=== PATIENT | female | born 1965 | race African-American/Black ===

== ENCOUNTER 2023-09-17 11:08 | Inpatient (IN) | payer OTHER ==
[2023-09-17 12:00] LABS: Basophils % (A) 0 %; Eosinophils # (A) 0.3 k/uL (0-0.7); Eosinophils % (A) 3 %; HCT 36.5 % (34.0-46.0); HGB 12.1 gm/dL (11.4-16.0); Lymphocytes # (A) 2.1 k/uL (1.0-4.8); Lymphocytes % (A) 20 %; MCH 30.8 pg (25.0-35.0); MCV 93.5 fL (80.0-100.0); Mean Platelet Volume 7.6; Monocytes # (A) 0.4 k/uL (0-1.0); Monocytes % (A) 4 %; Neutrophils # (A) 7.5 k/uL (1.3-7.7); Neutrophils % (A) 72 %; Platelet Count 278 k/uL (150-450); RBC 3.91 m/uL (3.80-5.40); WBC 10.5 k/uL (3.8-10.6)
[2023-09-17 12:07] LABS: INR 0.9 (<1.2); Partial Thromboplastin Time 24.2 sec (22.0-30.0); Prothrombin Time 9.9 sec (10.0-12.5)
[2023-09-17 12:16] LABS: ALT 16 U/L (4-34); AST 19 U/L (14-36); African American GFR (CKD) >90 (>60 ml/min/1.73 sqM); Albumin 3.9 g/dL (3.5-5.0); Alkaline Phosphatase 86 U/L (38-126); Anion Gap 9 mmol/L; Blood Urea Nitrogen 13 mg/dL (7-17); Calcium 9.2 mg/dL (8.4-10.2); Carbon Dioxide 24 mmol/L (22-30); Chloride 107 mmol/L (98-107); Creatine Kinase 65 U/L (30-135); Glucose 90 mg/dL (74-99); Non-African American GFR(CKD) >90 (>60 ml/min/1.73 sqM); Potassium 4.1 mmol/L (3.5-5.1); Sodium 140 mmol/L (137-145); Total Bilirubin 0.4 mg/dL (0.2-1.3); Total Protein 7.3 g/dL (6.3-8.2)
--- NOTE | 2023-09-17 12:49 | CT ---
EXAMINATION TYPE: CT brain wo con CT DLP: 1164 mGycm, Automated exposure control for dose reduction was used. DATE OF EXAM: 09/17/2023 12:29 PM COMPARISON: None. CLINICAL INDICATION:Female, 58 years old with history of Neuro deficit, acute, stroke suspected, Neur o deficit, acute stroke suspected. TECHNIQUE: Brain: Axial CT images of the brain were obtained with coronal and sagittal reformats created and rev iewed. Contrast used: None. Oral contrast used: None. FINDINGS: Brain: Extra-axial spaces: No abnormal extra-axial fluid collections. Ventricular system: Within normal limits Cerebral parenchyma: No acute intraparenchymal hemorrhage or mass effect. The kiser-white junction is well differentiated. Scattered hypoattenuating areas are seen within the white matter. Cerebellum: Unremarkable. Mass effect: No evidence of midline shift. Intracranial vasculature: unremarkable Soft tissues: Normal. Calvarium/osseous structures: No depressed skull fracture. Paranasal sinuses and mastoid air cells: Mild scattered paranasal sinus disease. Visualized orbits: Orbital contents are intact. The globes protrude from the orbits bilaterally.. IMPRESSION: 1. No acute intracranial process. 2. Nonspecific white matter changes, likely secondary to chronic small vessel ischemic disease. 3. Bilateral exophthalmos.
--- NOTE | 2023-09-17 12:53 | CT ---
EXAMINATION TYPE: CT angio head neck CT DLP: 662 mGycm, Automated exposure control for dose reduction was used. DATE OF EXAM: 09/17/2023 12:31 PM COMPARISON: CT head same day. CLINICAL INDICATION:Female, 58 years old with history of Neuro deficit, acute, stroke suspected; PHH, Neuro deficit, acute stroke suspected. TECHNIQUE: Axially acquired helical CT angiogram of the head and neck was obtained with contrast. Axi al images are supplemented with 3D reconstructions and MIP images which were post-processed at an in dependent workstation. NASCET criteria used. Contrast used:65 ml mL of Isovue 300 without and with IV Contrast, Oral contrast used: None. FINDINGS: CTA HEAD: No evidence of acute intracranial hemorrhage, mass effect, or midline shift. The ventricles, sulci, a nd cisterns are unremarkable. The visualized portions of the internal carotid arteries, middle cerebral arteries, anterior cerebral arteries, and posterior cerebral arteries are patent. Atherosclerosis of the carotid siphon. The basilar and vertebral arteries are patent. CTA NECK: Right Carotid System: The common carotid and external carotid arteries are patent. There is less than 50 % stenosis at the carotid bifurcation secondary to calcified/noncalcified plaque. The rest of the internal carotid millicent ry is patent. Left Carotid System: The common carotid and external carotid arteries are patent. There is less than 50 % stenosis at the carotid bifurcation secondary to calcified/noncalcified plaque. The rest of the internal carotid millicent ry is patent. Vertebral arteries are patent without evidence hemodynamically significant stenosis. There is a three-vessel aortic arch. The origins of the great vessels are patent. No evidence of hemo dynamically significant stenosis. The right subclavian artery courses posterior to the esophagus. Upper thorax: IMPRESSION: 1. No evidence of dissection of the cervical internal carotid arteries or vertebral arteries or any e vidence of significant stenosis at the carotid bifurcations. 2. No evidence of intracranial high-grade stenosis or intracranial aneurysm.
[2023-09-17] MEDS ORDERED: ASPIRIN 325 MG TAB PO STA (13:06)
--- NOTE | 2023-09-17 13:13 | ED ---
General Adult HPI - General Chief complaint: Neuro Symptoms/Deficit Stated complaint: Neuro symptoms Time Seen by Provider: 09/17/23 11:14 Source: patient, EMS, RN notes reviewed Mode of arrival: EMS Limitations: no limitations - History of Present Illness Initial comments: 58-year-old female presenting for evaluation of slurred speech, left-sided facia l droop, left arm numbness and weakness which began 2 days prior to arrival. Patient is currently at [facility] where she is undergoing substance abuse rehabilitation. She states that on September 15 she developed symptoms. They have not worsened or improved over the past 48 hours. She has no prior history of CVA that she reports. No headache. - Related Data Home Medications Medication Instructions Recorded Confirmed ARIPiprazole [Abilify] 15 mg PO HS 09/17/23 09/17/23 Acetaminophen Tab [Tylenol] 650 mg PO QID 09/17/23 09/17/23 Albuterol Nebulized [Ventolin 2.5 mg INHALATION RT-QID PRN 09/17/23 09/17/23 Nebulized] Albuterol Sulfate [Albuterol 2 puff PO RT-Q4H PRN 09/17/23 09/17/23 Sulfate Hfa] Artificial Tears-Hypromellose 1 drops BOTH EYES BID@0615,1630 09/17/23 09/17/23 [Artificial Tear Drops] Atorvastatin [Lipitor] 20 mg PO DAILY@0600 09/17/23 09/17/23 Benzonatate [Tessalon Perle] 200 mg PO TID PRN 09/17/23 09/17/23 Calcium/Magnesium/Zinc/Vitamin D 1 tab PO TID 09/17/23 09/17/23 Cetirizine HCl [Zyrtec] 10 mg PO DAILY@0600 09/17/23 09/17/23 Chlorpheniramine Maleate 4 mg PO Q4H PRN 09/17/23 09/17/23 [Chlor-Trimeton] Docusate [Colace] 100 mg PO BID PRN 09/17/23 09/17/23 Eucalyptus Oil/Menthol/Camphor 1 applic TOPICAL DIRECTED PRN 09/17/23 09/17/23 [Vicks Vaporub Ointment] Hydrocortisone Oint 1 applic TOPICAL BID@0600,1800 09/17/23 09/17/23 [Hydrocortisone 2.5% Oint] Ibuprofen [Motrin Ib] 600 mg PO Q6H PRN 09/17/23 09/17/23 Ketoconazole 2% Cream [Nizoral 2%] 1 applic TOPICAL DAILY@0609/17/23 09/17/23 Loperamide HCl [Imodium A-D] 4 mg PO QID PRN 09/17/23 09/17/23 Mag Hydrox/Aluminum Hyd/Simeth 30 ml PO Q4H PRN 09/17/23 09/17/23 [Mylanta Maximum Strength Liq] Magnesium Hydroxide [Milk of 2,400 mg PO BID PRN 09/17/23 09/17/23 Magnesia] Methyl Salicylate/Menthol [Icy Hot 1 applic TOPICAL BID PRN 09/17/23 09/17/23 10-30% Cream] Mometasone/Formoterol [Dulera 200 2 puff INHALATION BID@0600,1800 09/17/23 09/17/23 Mcg-5 Mcg Inhaler] Multivitamins, Thera [Multivitamin 1 tab PO DAILY 09/17/23 09/17/23 (formulary)] Prazosin [Minipress] 1 mg PO HS 09/17/23 09/17/23 QUEtiapine [SEROquel] 50 mg PO HS 09/17/23 09/17/23 Thiamine [Vitamin B-1] 100 mg PO DAILY 09/17/23 09/17/23 Triamcinolone 0.1% Cream [Kenalog 1 applicatio TOPICAL BID@0800,199909/17/23 09/17/23 0.1% Cream] amLODIPine [Norvasc] 10 mg PO DAILY@59909/17/23 09/17/23 atenoloL [Tenormin] 25 mg PO DAILY@59909/17/23 09/17/23 cloNIDine HCL [Catapres] 0.1 - 0.3 mg PO Q4H PRN 09/17/23 09/17/23 guaiFENesin SYRUP 100MG/5ML 200 mg PO Q4H PRN 09/17/23 09/17/23 [Robitussin] ondansetron HCL [Zofran] 8 mg PO Q6H PRN 09/17/23 09/17/23 Allergies Allergy/AdvReac Type Severity Reaction Status Date / Time benztropine [From Cogentin] Allergy Unknown Verified 09/17/23 12:04 venlafaxine [From Effexor] Allergy Anaphylaxis Verified 09/17/23 12:04 Review of Systems ROS Statement: Those systems with pertinent positive or pertinent negative responses have been documented in the HPI. ROS Other: All systems not noted in ROS Statement are negative. Past Medical History Past Medical History: Hyperlipidemia, Hypertension History of Any Multi-Drug Resistant Organisms: None Reported Past Psychological History: Bipolar, Schizoaffective Disorder Smoking Status: Current every day smoker Past Alcohol Use History: Abuse Past Drug Use History: Cocaine, Marijuana General Exam Limitations: no limitations General appearance: alert, in no apparent distress Head exam: Present: atraumatic, normocephalic ENT exam: Present: normal exam Neck exam: Present: normal inspection. Absent: tenderness, meningismus Respiratory exam: Present: normal lung sounds bilaterally. Absent: respiratory distress, wheezes Cardiovascular Exam: Present: regular rate, normal rhythm GI/Abdominal exam: Present: soft. Absent: distended, tenderness, guarding Neurological exam: Present: alert, motor sensory deficit (Left arm drift, mild dysarthria, NIH of 2) Psychiatric exam: Present: flat affect Skin exam: Present: warm, dry, intact Course Vital Signs 09/17/23 11:30 Temperature 98.1 F Pulse Rate 66 Respiratory 16 Rate Blood Pressure 138/88 O2 Sat by Pulse 96 Oximetry Medical Decision Making - Medical Decision Making Was pt. sent in by a medical professional or institution (, PA, HANDLE FINISHER, urgent care, hospital, or custodial...) When possible be specific @ -No Did you speak to anyone other than the patient for history (EMS, parent, family, police, friend...)? What history was obtained from this source @ -Yes, paramedics Did you review nursing and triage notes (agree or disagree)? Why? @ -I reviewed and agree with nursing and triage notes Were old charts reviewed (outside hosp., previous admission, EMS record, old EKG, old radiological studies, urgent care reports/EKG's, custodial records)? Report findings @ -No old charts were reviewed Differential Diagnosis (chest pain, altered mental status, abdominal pain women, abdominal pain men, vaginal bleeding, weakness, fever, dyspnea, syncope, headache, dizziness, GI bleed, back pain, seizure, CVA, palpatations, mental health, musculoskeletal)? @ -Differential CVA Ischemic stroke, hemorrhagic stroke, brain tumor, atypical migraine, Wernicke's encephalopathy, seizure, multiple sclerosis, meningitis, encephalitis, hypoglycemia, Guillain-Harris, electrolytes disturbance, myasthenia gravis.... This is not meant to be an all-inclusive list EKG interpreted by me (3pts min.). @ -Sinus rhythm rate of 66, AR interval 157, QRS duration 84, QTC [address] segment elevation X-rays interpreted by me (1pt min.). @ -None done CT interpreted by me (1pt min.). @ -[CT brain negative for intracranial hemorrhage or mass effect, CT angiography negative for acute occlusion or stenosis U/S interpreted by me (1pt. min.). @ -None done What testing was considered but not performed or refused? (CT, X-rays, U/S, labs)? Why? @ -None What meds were considered but not given or refused? Why? @ -None Did you discuss the management of the patient with other professionals (professionals i.e. , PA, HANDLE FINISHER, lab, RT, psych nurse, social media marketer, dairy clerk, teacher, mortgage loan officer originator, bilingual case manager)? Give summary @ -No Was smoking cessation discussed for >3mins.? @ -No Was critical care preformed (if so, how long)? @ -yes, 35 min Were there social determinants of health that impacted care today? How? (Homelessness, low income, unemployed, alcoholism, drug addiction, transportation, low edu. Level, literacy, decrease access to med. care, residential, rehab)? @ -No Was there de-escalation of care discussed even if they declined (Discuss DNR or withdrawal of care, Hospice)? DNR status @ -No What co-morbidities impacted this encounter? (DM, HTN, Smoking, COPD, CAD, Cancer, CVA, ARF, Chemo, Hep., AIDS, mental health diagnosis, sleep apnea, morbid obesity)? @ Substance abuse. Was patient admitted / discharged? Hospital course, mention meds given and route, prescriptions, significant lab abnormalities, going to OR and other pertinent info. @ 58-year-old female with 2 day history of slurred speech, left arm numbness and weakness and reported left facial droop. Initial NIH on my exam is 2 for left arm drift and mild dysarthria. She has stable vital signs. Laboratory testing unremarkable. CT is CT angiography are negative. patient is not a TPA candidate or candidate for intervention given the low NIH and the duration of symptoms. Undiagnosed new problem with uncertain prognosis? @ -No Drug Therapy requiring intensive monitoring for toxicity (Heparin, Nitro, Insulin, Cardizem)? @ -No Were any procedures done? @ -No Diagnosis/symptom? @ -[CVA Acute, or Chronic, or Acute on Chronic? @ Acute Uncomplicated (without systemic symptoms) or Complicated (systemic symptoms)? @ -default Side effects of treatment? @ -No Exacerbation, Progression, or Severe Exacerbation? @ -No Poses a threat to life or bodily function? How? (Chest pain, USA, AR, pneumonia, PE, COPD, DKA, ARF, appy, cholecystitis, CVA, Diverticulitis, Homicidal, Suicidal, threat to staff... and all critical care pts) @ -[Moderate risk, CVA - Lab Data Result diagrams: 09/17/23 11:41 09/17/23 11:41 Lab Results 09/17/23 09/17/23 09/17/23 Range/Units 11:41 11:41 11:41 WBC 10.5 (3.8-10.6) k/uL RBC 3.91 (3.80-5.40) m/uL Hgb 12.1 (11.4-16.0) gm/dL Hct 36.5 (34.0-46.0) % MCV 93.5 (80.0-100.0) fL MCH 30.8 (25.0-35.0) pg MCHC 33.0 (31.0-37.0) g/dL RDW 14.0 (11.5-15.5) % Plt Count 278 (150-450) k/uL MPV 7.6 Neutrophils % 72 % Lymphocytes % 20 % Monocytes % 4 % Eosinophils % 3 % Basophils % 0 % Neutrophils # 7.5 (1.3-7.7) k/uL Lymphocytes # 2.1 (1.0-4.8) k/uL Monocytes # 0.4 (0-1.0) k/uL Eosinophils # 0.3 (0-0.7) k/uL Basophils # 0.0 (0-0.2) k/uL PT 9.9 L (10.0-12.5) sec INR 0.9 (<1.2) APTT 24.2 (22.0-30.0) sec Sodium 140 (137-145) mmol/L Potassium 4.1 (3.5-5.1) mmol/L Chloride 107 (98-107) mmol/L Carbon Dioxide 24 (22-30) mmol/L Anion Gap 9 mmol/L BUN 13 (7-17) mg/dL Creatinine 0.64 (0.52-1.04) mg/dL Est GFR (CKD-EPI)AfAm >90 (>60 ml/min/1.73 sqM) Est GFR (CKD-EPI)NonAf >90 (>60 ml/min/1.73 sqM) Glucose 90 (74-99) mg/dL Calcium 9.2 (8.4-10.2) mg/dL Total Bilirubin 0.4 (0.2-1.3) mg/dL AST 19 (14-36) U/L ALT 16 (4-34) U/L Alkaline Phosphatase 86 (38-126) U/L Creatine Kinase 65 (30-135) U/L Troponin I (0.000-0.034) ng/mL Total Protein 7.3 (6.3-8.2) g/dL Albumin 3.9 (3.5-5.0) g/dL 09/17/23 Range/Units 11:41 WBC (3.8-10.6) k/uL RBC (3.80-5.40) m/uL Hgb (11.4-16.0) gm/dL Hct (34.0-46.0) % MCV (80.0-100.0) fL MCH (25.0-35.0) pg MCHC (31.0-37.0) g/dL RDW (11.5-15.5) % Plt Count (150-450) k/uL MPV Neutrophils % % Lymphocytes % % Monocytes % % Eosinophils % % Basophils % % Neutrophils # (1.3-7.7) k/uL Lymphocytes # (1.0-4.8) k/uL Monocytes # (0-1.0) k/uL Eosinophils # (0-0.7) k/uL Basophils # (0-0.2) k/uL PT (10.0-12.5) sec INR (<1.2) APTT (22.0-30.0) sec Sodium (137-145) mmol/L Potassium (3.5-5.1) mmol/L Chloride (98-107) mmol/L Carbon Dioxide (22-30) mmol/L Anion Gap mmol/L BUN (7-17) mg/dL Creatinine (0.52-1.04) mg/dL Est GFR (CKD-EPI)AfAm (>60 ml/min/1.73 sqM) Est GFR (CKD-EPI)NonAf (>60 ml/min/1.73 sqM) Glucose (74-99) mg/dL Calcium (8.4-10.2) mg/dL Total Bilirubin (0.2-1.3) mg/dL AST (14-36) U/L ALT (4-34) U/L Alkaline Phosphatase (38-126) U/L Creatine Kinase (30-135) U/L Troponin I <0.012 (0.000-0.034) ng/mL Total Protein (6.3-8.2) g/dL Albumin (3.5-5.0) g/dL Critical Care Time Critical Care Time: Yes Total Critical Care Time: 35 Disposition Clinical Impression: Cerebrovascular accident (CVA) Disposition: ADMITTED IP TO THIS HOSP Condition: Stable Is patient prescribed a controlled substance at d/c from ED?: No Time of Disposition: 13:13
[2023-09-17] MEDS: NICOTINE 21MG/24HR PATCH TRANSDERM SCH (15:31)
--- NOTE | 2023-09-17 18:58 | CA ---
Transthoracic Echo Report Name: Hailey Puckett Age: 58 Gender: F : 1965 Exam Date: 09/17/2023 16:33 Exam Location: [facility] Ht (in): Wt (lb): Ordering Physician: Vicente George MD Attending/Referring Phys: [employer] Accounts Supervisor Shu Gonzalez RDCS Procedure CPT: Indications: stroke Cardiac Hx: Technical Quality: Fair Contrast 1: Total Dose (mL): Contrast 2: Total Dose (mL): MEASUREMENTS (Male / Female) Normal Values 2D ECHO LV Diastolic Diameter PLAX 4.2 cm 4.2 - 5.9 / 3.9 - 5.3 cm LV Systolic Diameter PLAX 3.3 cm IVS Diastolic Thickness 1.2 cm 0.6 - 1.0 / 0.6 - 0.9 cm LVPW Diastolic Thickness 1.3 cm 0.6 - 1.0 / 0.6 - 0.9 cm LV Relative Wall Thickness 0.6 RV Internal Dim ED PLAX 3.7 cm LA Systolic Diameter LX 3.6 cm 3.0 - 4.0 / 2.7 - 3.8 cm LV Diastolic Volume MOD BP 68.7 cm??? 67 - 155 / 56 - 104 cm??? LV Systolic Volume MOD BP 36.5 cm??? 22 - 58 / 19 - 49 cm??? LV Ejection Fraction MOD BP 46.9 % >= 55 % LV Diastolic Volume MOD 4C 73.3 cm??? LV Systolic Volume MOD 4C 34.3 cm??? LV Ejection Fraction MOD 4C 53.2 % LV Diastolic Length 4C 8.0 cm LV Systolic Length 4C 6.8 cm LV Diastolic Volume MOD 2C 63.6 cm??? LV Systolic Volume MOD 2C 39.3 cm??? LV Ejection Fraction MOD 2C 38.1 % LV Diastolic Length 2C 7.8 cm LV Systolic Length 2C 6.8 cm LA Volume 55.0 cm??? 18 - 58 / 22 - 52 cm??? M-MODE Aortic Root Diameter MM 3.2 cm MV E Point Septal Separation 0.7 cm AV Cusp Separation MM 2.0 cm DOPPLER AV Peak Velocity 141.4 cm/s AV Peak Gradient 8.0 mmHg AI Peak Velocity 321.6 cm/s AI Peak Gradient 41.4 mmHg AI Pressure Half Time 611.2 ms MV Area PHT 2.8 cm??? Mitral E Point Velocity 137.6 cm/s Mitral A Point Velocity 109.0 cm/s Mitral E to A Ratio 1.3 MV Deceleration Time 266.9 ms MV E' Velocity 9.0 cm/s Mitral E to MV E' Ratio 15.3 TR Peak Velocity 271.4 cm/s TR Peak Gradient 29.5 mmHg Right Ventricular Systolic Press 34.5 mmHg FINDINGS Left Ventricle Left ventricular ejection fraction is estimated at 50-55 %. Left ventricular cavity size normal. Mildly increased septal wall thickness. Mildly increased posterior wall thickness. Mildly decreased left ventricular ejection fraction. Right Ventricle Mild right ventricular dilatation. Mild pulmonary hypertension. Right Atrium Normal right atrial size. Left Atrium Mildly increased left atrial volume. Mildly increased left atrial area. Mitral Valve Structurally normal mitral valve. Trace to mild mitral regurgitation. Aortic Valve Trileaflet aortic valve. Mild aortic regurgitation. Tricuspid Valve Structurally normal tricuspid valve. Mild tricuspid regurgitation. Pulmonic Valve Pulmonic valve not well visualized. Pericardium No pericardial effusion. Aorta Normal size aortic root and proximal ascending aorta. CONCLUSIONS Left ventricular ejection fraction is estimated at 50-55 %. Mild concentric illness No obvious regional wall motion abnormality Mild MR and mild AR RVSP estimated 35 mmHg No pericardial effusion Previewed by: Dr Juan Luis Flores (Electronically Signed) Final Date: 17 September 2023 18:58
[2023-09-17] MEDS ORDERED: METHYL SALICYLATE-MENTHOL OINT (3 OZ TUBE) TOPICAL PRN (20:48)
[2023-09-17] MEDS ORDERED: [UNRECOGNIZED DRUG - OTHER] TOPICAL PRN (20:48)
[2023-09-17] MEDS ORDERED: MENTHOL TOPICAL PRN (20:48)
[2023-09-17] MEDS ORDERED: EUCALYPTUS OIL TOPICAL PRN (20:48)
[2023-09-17] MEDS ORDERED: ALBUTEROL HFA INHALER INHALATION PRN (20:48)
[2023-09-17] MEDS ORDERED: MAG HYDROX/AL HYDROX/SIMETH 30 ML CUP PO PRN (20:48)
[2023-09-17] MEDS ORDERED: BENZONATATE 100 MG CAP PO PRN (20:48)
[2023-09-17] MEDS ORDERED: diphenhydrAMINE 25 MG CAP PO PRN (20:48)
[2023-09-17] MEDS ORDERED: MAGNESIUM HYDROXIDE 2,400 MG/30 ML CUP PO PRN (20:48)
[2023-09-17] MEDS ORDERED: guaiFENesin SYRUP 100MG/5ML 200 MG/10 ML CUP PO PRN (20:48)
[2023-09-17] MEDS ORDERED: LOPERAMIDE 2 MG CAP PO PRN (20:48)
[2023-09-17] MEDS ORDERED: CAMPHOR TOPICAL PRN (20:48)
[2023-09-17] MEDS ORDERED: DOCUSATE 100 MG CAP PO PRN (20:48)
[2023-09-17] MEDS ORDERED: NON FORMULARY DRUG (Calcium/Magnesium/Zinc/Vitamin D 1 TAB) PO SCH (22:00)
[2023-09-17] MEDS: ARIPiprazole 15 MG TAB PO SCH (23:33)
[2023-09-17] MEDS: ATORVASTATIN 40 MG TAB PO SCH (23:33)
[2023-09-17] MEDS: HEPARIN SODIUM,PORCINE 5,000 UNIT/ML 1 ML VIAL SQ SCH (23:33)
[2023-09-17] MEDS: PRAZOSIN 1 MG CAP PO SCH (23:33)
[2023-09-17] MEDS: QUEtiapine 50 MG TAB PO SCH (23:33)
[2023-09-17] MEDS: ACETAMINOPHEN TAB 325 MG TAB PO PRN (23:34)
[2023-09-18] MEDS: amLODIPine 10 MG TAB PO SCH (06:20)
[2023-09-18] MEDS: LORATADINE 10 MG TAB PO SCH (06:20)
[2023-09-18] MEDS: atenoloL 25 MG TAB PO SCH (06:20)
[2023-09-18] MEDS: ARTIFICIAL TEARS-HYPROMELLOSE DROPS 15 ML BTL BOTH EYES SCH ×2 (06:29→15:24)
[2023-09-18] MEDS: CLOTRIMAZOLE 1% CREAM 30 GM TUBE TOPICAL SCH ×2 (06:29→06:37)
[2023-09-18] MEDS: HYDROCORTISONE 1% OINT 28.35 GM TUBE TOPICAL SCH ×2 (06:39→18:42)
[2023-09-18] MEDS: ACETAMINOPHEN TAB 325 MG TAB PO PRN ×2 (06:40→16:36)
--- NOTE | 2023-09-18 08:54 | P.HPIM ---
History of Present Illness This is a pleasant 58 years old female with multiple medical problems She was recently admitted and check herself to [place] for alcohol withdrawal, she used to drink 1 pint and a half every day, she smokes about half pack per day and sometimes more and she was counseled to quit and she agrees for both and to the nicotine patch which she already has. She denies illicit drugs. Tuesday morning she started having feeling unwell associated with weakness in the left side and abnormal speech. She came to the hospital yesterday. With no improvement in her symptoms. She denies any other new complaints, no chest pain or dyspnea, no fever no change in urine or bowel problem. Patient complains from headache about 7-8/10 in severity now 6-7, all over. Also she has tingling in her toes and left hand. She denies depression or suicidal ideation. Patient states she was taking aspirin for the last 4 years but she could not no the dose, she denies history of stroke but states she take it for heart reason as she thinks. On admission Vitas looks stable, blood pressure is slightly elevated 141/90. Labs show an unremarkable CBC, INR, BMP, liver enzymes and creatinine kinase Is 1.6 Troponin less than 0.012. Echocardiogram showing ejection fraction about 50-55% of the left ventricle EKG showing normal sinus rhythm at [address]-T changes Attention with no acute intracranial process CT of the head and neck showing no evidence of stenosis aneurysm or acute fracture. Currently patient placed on aspirin 325 mg She was admitted with neurological workup Review of Systems Review of systems CONSTITUTIONAL: No fever, no malaise, no fatigue. HEENT: No recent visual problems or hearing problems. Denied any sore throat. CARDIOVASCULAR: No orthopnea, PND, no palpitations, no syncope. PULMONARY: No shortness of breath, no cough, no hemoptysis. GASTROINTESTINAL: No diarrhea, no nausea, no vomiting, no abdominal pain. Normoactive bowel sounds. -NEUROLOGICAL: As above HEMATOLOGICAL: Denies any bleeding or petechiae. GENITOURINARY: Denies any burning micturition, frequency, or urgency. MUSCULOSKELETAL/RHEUMATOLOGICAL: Denies any joint pain, swelling, or any muscle pain. ENDOCRINE: Denies any polyuria or polydipsia. Past Medical History Past Medical History: Asthma, Hyperlipidemia, Hypertension History of Any Multi-Drug Resistant Organisms: None Reported Additional Past Surgical History / Comment(s): bilat cataract surgery Past Anesthesia/Blood Transfusion Reactions: No Reported Reaction Past Psychological History: Bipolar, Schizoaffective Disorder Smoking Status: Current every day smoker Past Alcohol Use History: Abuse Past Drug Use History: Cocaine, Marijuana Medications and Allergies Home Medications Medication Instructions Recorded Confirmed Type ARIPiprazole [Abilify] 15 mg PO HS 09/17/23 09/17/23 History Acetaminophen Tab [Tylenol] 650 mg PO QID 09/17/23 09/17/23 History Albuterol Nebulized [Ventolin 2.5 mg INHALATION RT-QID PRN 09/17/23 09/17/23 History Nebulized] Albuterol Sulfate [Albuterol 2 puff PO RT-Q4H PRN 09/17/23 09/17/23 History Sulfate Hfa] Artificial Tears-Hypromellose 1 drops BOTH EYES BID@0615,1630 09/17/23 09/17/23 History [Artificial Tear Drops] Atorvastatin [Lipitor] 20 mg PO DAILY@0600 09/17/23 09/17/23 History Benzonatate [Tessalon Perle] 200 mg PO TID PRN 09/17/23 09/17/23 History Calcium/Magnesium/Zinc/Vitamin D 1 tab PO TID 09/17/23 09/17/23 History Cetirizine HCl [Zyrtec] 10 mg PO DAILY@0600 09/17/23 09/17/23 History Chlorpheniramine Maleate 4 mg PO Q4H PRN 09/17/23 09/17/23 History [Chlor-Trimeton] Docusate [Colace] 100 mg PO BID PRN 09/17/23 09/17/23 History Eucalyptus Oil/Menthol/Camphor 1 applic TOPICAL DIRECTED PRN 09/17/23 09/17/23 History [Vicks Vaporub Ointment] Hydrocortisone Oint 1 applic TOPICAL BID@0600,1800 09/17/23 09/17/23 History [Hydrocortisone 2.5% Oint] Ibuprofen [Motrin Ib] 600 mg PO Q6H PRN 09/17/23 09/17/23 History Ketoconazole 2% Cream [Nizoral 2%] 1 applic TOPICAL DAILY@0600 09/17/23 09/17/23 History Loperamide HCl [Imodium A-D] 4 mg PO QID PRN 09/17/23 09/17/23 History Mag Hydrox/Aluminum Hyd/Simeth 30 ml PO Q4H PRN 09/17/23 09/17/23 History [Mylanta Maximum Strength Liq] Magnesium Hydroxide [Milk of 2,400 mg PO BID PRN 09/17/23 09/17/23 History Magnesia] Methyl Salicylate/Menthol [Icy Hot 1 applic TOPICAL BID PRN 09/17/23 09/17/23 History 10-30% Cream] Mometasone/Formoterol [Dulera 200 2 puff INHALATION BID@0600,1800 09/17/23 09/17/23 History Mcg-5 Mcg Inhaler] Multivitamins, Thera [Multivitamin 1 tab PO DAILY 09/17/23 09/17/23 History (formulary)] Prazosin [Minipress] 1 mg PO HS 09/17/23 09/17/23 History QUEtiapine [SEROquel] 50 mg PO HS 09/17/23 09/17/23 History Thiamine [Vitamin B-1] 100 mg PO DAILY 09/17/23 09/17/23 History Triamcinolone 0.1% Cream [Kenalog 1 applicatio TOPICAL BID@0800,2000 09/17/23 09/17/23 History 0.1% Cream] amLODIPine [Norvasc] 10 mg PO DAILY@0600 09/17/23 09/17/23 History atenoloL [Tenormin] 25 mg PO DAILY@0600 09/17/23 09/17/23 History cloNIDine HCL [Catapres] 0.1 - 0.3 mg PO Q4H PRN 09/17/23 09/17/23 History guaiFENesin SYRUP 100MG/5ML 200 mg PO Q4H PRN 09/17/23 09/17/23 History [Robitussin] ondansetron HCL [Zofran] 8 mg PO Q6H PRN 09/17/23 09/17/23 History Allergies Allergy/AdvReac Type Severity Reaction Status Date / Time benztropine [From Cogentin] Allergy Unknown Verified 09/17/23 12:04 venlafaxine [From Effexor] Allergy Anaphylaxis Verified 09/17/23 12:04 Physical Exam Vitals: Vital Signs Temp Pulse Pulse Resp BP BP Pulse Ox 09/18/23 04:20 79 18 111/60 98 09/17/23 23:30 82 20 141/90 96 09/17/23 21:46 98.4 F 78 17 177/90 96 09/17/23 19:47 98 F 76 20 183/90 96 09/17/23 18:40 99.2 F 78 18 147/84 96 09/17/23 11:30 98.1 F 66 16 138/88 96 Intake and Output 09/17/23 09/18/23 09/18/23 22:59 06:59 14:59 Other: Voiding Method Toilet # Voids 2 Weight 81.647 kg -GENERAL: The patient is alert and oriented x3, not in any acute distress. Obese. HEENT: Pupils are round and equally reacting to light. EOMI. No scleral icterus. No conjunctival pallor. Normocephalic, atraumatic. No pharyngeal erythema. No thyromegaly. CARDIOVASCULAR: S1 and S2 present. No murmurs, rubs, or gallops. PULMONARY: Chest is clear to auscultation, no wheezing , no crackles. ABDOMEN: Soft, nontender, nondistended, normoactive bowel sounds. No palpable organomegaly. MUSCULOSKELETAL: No joint swelling or deformity. EXTREMITIES: No cyanosis, clubbing, or pedal edema. -NEUROLOGICAL: right facial division, slurred speech, weakness in the left upper and lower extremities. We clipped drip, weak flexion and extension of the left lower extremity. Rest of exam motor 5/5. Ventral signs are absent. SKIN: No rashes. no petechiae. Results CBC & Chem 7: 09/17/23 11:41 09/17/23 11:41 Labs: Abnormal Lab Results - Last 24 Hours (Table) 09/17/23 Range/Units 11:41 PT 9.9 L (10.0-12.5) sec Thrombosis Risk Factor Assmnt - Choose All That Apply Any of the Below Risk Factors Present?: Yes Each Factor Represents 1 point: Age 41-60 years, Obesity (BMI >25) Other Risk Factors: No Other congenital or acquired thrombophilia - If yes, enter type in comment: No Thrombosis Risk Factor Assessment Total Risk Factor Score: 2 Thrombosis Risk Factor Assessment Level: Low Risk Assessment and Plan Assessment: Acute left hemiparesis with slurred speech and mild facial division suspicious f or acute stroke Obesity with BMI of 29.1 Nicotine dependence Permissive hypertension History of asthma Hyperlipidemia History of bipolar and schizoaffective disorder Plan: Continue with aspirin follow-up with MRI of the brain Neurology consult Labs and medication were reviewed.. Continue same treatment. Continue with symptomatic treatment. Resume home medication. Monitor labs and vitals. DVT and GI prophylaxis. Further recommendations as per clinical course of the patient DVT prophylaxis: Subcutaneous heparin GI Prophylaxis: Pepcid PT/OT: Pending Prognosis is guarded
[2023-09-18] MEDS: HEPARIN SODIUM,PORCINE 5,000 UNIT/ML 1 ML VIAL SQ SCH ×2 (09:03→21:01)
[2023-09-18] MEDS: FAMOTIDINE 20 MG/2 ML VIAL IV SCH ×2 (09:03→21:01)
[2023-09-18] MEDS: MULTIVITAMINS, THERA 1 EACH TAB PO SCH (09:03)
[2023-09-18] MEDS: THIAMINE 100 MG TAB PO SCH (09:03)
[2023-09-18] MEDS: IBUPROFEN 600 MG TAB PO PRN (09:03)
[2023-09-18] MEDS: ASPIRIN 325 MG TAB PO SCH (09:03)
[2023-09-18] MEDS: NICOTINE 21MG/24HR PATCH TRANSDERM SCH (09:03)
[2023-09-18] MEDS: SYMBICORT 160-4.5 MCG INHALER INHALATION SCH ×2 (11:07→21:04)
--- NOTE | 2023-09-18 11:35 | P.CNNES ---
History of Present Illness Consult date: 09/18/23 Requesting physician: Ovidio Nicolas Reason for Consult: cva History of Present Illness: This is a 58-year-old woman who presented emergency department from [place] because of left-sided weakness, slurred speech, left facial droop concerning for stroke. She is undergoing substance abuse rehab. She presents to our facility on 09/17/2023 around 11:08am. She stated that that her symptoms began on 09/16/2023 when she woke up in the morning and she noticed left-sided weakness left facial droop, drooling on the left side and slurring the speech. But it seems that she notified that an emergency seem that the her symptoms began on 09/15/2023. Patient denies any worsening of her symptoms. Denies of any visual disturbance, denies of any difficulty swallowing. She does have some tingling sensation over the left lower extremity at. Patient denies any history of stroke. She does have underlying hypertension and states that uncontrolled. She has hypercholesterolemia. She has history of polysubstance abuse in which the she is using cocaine, alcohol. She also was smoke cigarettes and smoking marijuana. Some of the workup during his hospital visit consisted of: Patient has episode of blood pressure in the 170s to 180s systolic early it's in the 110s to 140s over 60s to 90s. CBC with differential and chemistry panels unremarkable TSH is 1.610. CT of the head is reported as no acute intracranial process. Nonspecific white matter changes, likely secondary due to chronic small vessel ischemic disease. I personally reviewed that a CT and agree with the report. CT angiography of the head and neck is reported as no evidence of dissection of the cervical internal carotid artery or vertebral artery or any evidence of significant stenosis at the carotid bifurcation. No evidence of intracranial high-grade stenosis or intracranial aneurysm. EKG is reported as sinus rhythm. Normal EKG. The echo was reported as left ventricle ejection fraction estimated of 50-55%. Mild concentric the illness. No obvious regional wall motion abnormality. Review of Systems Review of system: The 12 point system was reviewed and apparent positive and negative per HPI. Past Medical History Past Medical History: Asthma, Hyperlipidemia, Hypertension History of Any Multi-Drug Resistant Organisms: None Reported Additional Past Surgical History / Comment(s): bilat cataract surgery Past Anesthesia/Blood Transfusion Reactions: No Reported Reaction Past Psychological History: Bipolar, Schizoaffective Disorder Smoking Status: Current every day smoker Past Alcohol Use History: Abuse Past Drug Use History: Cocaine, Marijuana Medications and Allergies Home Medications Medication Instructions Recorded Confirmed Type ARIPiprazole [Abilify] 15 mg PO HS 09/17/23 09/17/23 History Acetaminophen Tab [Tylenol] 650 mg PO QID 09/17/23 09/17/23 History Albuterol Nebulized [Ventolin 2.5 mg INHALATION RT-QID PRN 09/17/23 09/17/23 History Nebulized] Albuterol Sulfate [Albuterol 2 puff PO RT-Q4H PRN 09/17/23 09/17/23 History Sulfate Hfa] Artificial Tears-Hypromellose 1 drops BOTH EYES BID@0615,1630 09/17/23 09/17/23 History [Artificial Tear Drops] Atorvastatin [Lipitor] 20 mg PO DAILY@0600 09/17/23 09/17/23 History Benzonatate [Tessalon Perle] 200 mg PO TID PRN 09/17/23 09/17/23 History Calcium/Magnesium/Zinc/Vitamin D 1 tab PO TID 09/17/23 09/17/23 History Cetirizine HCl [Zyrtec] 10 mg PO DAILY@0600 09/17/23 09/17/23 History Chlorpheniramine Maleate 4 mg PO Q4H PRN 09/17/23 09/17/23 History [Chlor-Trimeton] Docusate [Colace] 100 mg PO BID PRN 09/17/23 09/17/23 History Eucalyptus Oil/Menthol/Camphor 1 applic TOPICAL DIRECTED PRN 09/17/23 History [Vicks Vaporub Ointment] Hydrocortisone Oint 1 applic TOPICAL BID@0600,1800 09/17/23 09/17/23 History [Hydrocortisone 2.5% Oint] Ibuprofen [Motrin Ib] 600 mg PO Q6H PRN 09/17/23 09/17/23 History Ketoconazole 2% Cream [Nizoral 2%] 1 applic TOPICAL DAILY@0600 09/17/23 09/17/23 History Loperamide HCl [Imodium A-D] 4 mg PO QID PRN 09/17/23 09/17/23 History Mag Hydrox/Aluminum Hyd/Simeth 30 ml PO Q4H PRN 09/17/23 09/17/23 History [Mylanta Maximum Strength Liq] Magnesium Hydroxide [Milk of 2,400 mg PO BID PRN 09/17/23 09/17/23 History Magnesia] Methyl Salicylate/Menthol [Icy Hot 1 applic TOPICAL BID PRN 09/17/23 09/17/23 History 10-30% Cream] Mometasone/Formoterol [Dulera 200 2 puff INHALATION BID@0600,1800 09/17/23 09/17/23 History Mcg-5 Mcg Inhaler] Multivitamins, Thera [Multivitamin 1 tab PO DAILY 09/17/23 09/17/23 History (formulary)] Prazosin [Minipress] 1 mg PO HS 09/17/23 09/17/23 History QUEtiapine [SEROquel] 50 mg PO HS 09/17/23 09/17/23 History Thiamine [Vitamin B-1] 100 mg PO DAILY 09/17/23 09/17/23 History Triamcinolone 0.1% Cream [Kenalog 1 applicatio TOPICAL BID@0800,2000 09/17/23 09/17/23 History 0.1% Cream] amLODIPine [Norvasc] 10 mg PO DAILY@0600 09/17/23 09/17/23 History atenoloL [Tenormin] 25 mg PO DAILY@0600 09/17/23 09/17/23 History cloNIDine HCL [Catapres] 0.1 - 0.3 mg PO Q4H PRN 09/17/23 09/17/23 History guaiFENesin SYRUP 100MG/5ML 200 mg PO Q4H PRN 09/17/23 09/17/23 History [Robitussin] ondansetron HCL [Zofran] 8 mg PO Q6H PRN 09/17/23 09/17/23 History Allergies Allergy/AdvReac Type Severity Reaction Status Date / Time benztropine [From Cogentin] Allergy Unknown Verified 09/17/23 12:04 venlafaxine [From Effexor] Allergy Anaphylaxis Verified 09/17/23 12:04 Physical Examination - Vital Signs Vital Signs: Vital Signs Temp Pulse Pulse Resp BP BP Pulse Ox 09/18/23 08:50 98.0 F 69 17 141/92 96 09/18/23 04:20 79 18 111/60 98 09/17/23 23:30 82 20 141/90 96 09/17/23 21:46 98.4 F 78 17 177/90 96 09/17/23 19:47 98 F 76 20 183/90 96 09/17/23 18:40 99.2 F 78 18 147/84 96 09/17/23 11:30 98.1 F 66 16 138/88 96 Intake and Output 09/17/23 09/18/23 09/18/23 22:59 06:59 14:59 Intake Total 360 Balance 360 Intake: Oral 360 Other: Voiding Method Toilet Toilet # Voids 2 2 Weight 81.647 kg GENERAL: The patient is lying in bed and is not in acute distress. NEUROLOGICAL: Higher mental function: The patient is awake, alert, oriented to self, place and time. Patient is following commands. No aphasia and no neglect. Cranial nerves: The pupils are round, equal and reactive to light and accommod ation. Visual payne are full to confrontation throughout. Extraocular movement is intact no nystagmus is noted. Facial sensation is decreased to touch on the left side to touch throughout. The facial strength is normal throughout. Hearing is normal bilaterally to hand rub. Tongue is midline and moved [id number] without any difficulty. Very Subtle dysarthria. Shoulder shrug is normal bilaterally. Motor: Gait is deferred because of weakness. The strength is left upper extremity is 4+ while left lower is 3-4-. Right is 5 over 5 throughout. Has mild pronator drift on the left upper extremity. Normal tone and bulk. Cerebellum: Normal finger to nose bilaterally. Sensation: Sensation is decrease to touch over the left lower extremity. Reflexes (right/left):2+ throughout. Plantars are mute bilaterally. Results - Laboratory Findings CBC and BMP: 09/17/23 11:41 09/17/23 11:41 Abnormal Lab Findings: Abnormal Labs 09/17/23 11:41 PT 9.9 L Assessment and Plan Assessment: This is a 58-year-old presents to our facility on 09/17/2023 from [place] because of left eyelid weakness, left facial droop, slurring the speech, numbness in the left lower extremity. She states she has uncontrolled hypertension. Denies any history of stroke. Acute to subacute ischemic stroke (with symptoms of left sided weakness, left numbness, dysarthria). Uncontrolled hypertension (states has underlying hx of HTN and can be in 170's systolic) Hypercholesteremia Polysubstance use (cocaine and alcohol use) Tobacco use Marijuana use Plan: In the ED the patient the was given aspirin 325 once and was started on aspirin 325 daily. I'll start the patient also on Plavix 75 mg daily. The patient's s he was on aspirin at home but I do not see as her home medication on the EMR we'll try to get more clarification. I started the patient on Lipitor 40 mg daily at bedtime for signature prophylaxis Pending at MRI the brain and lipid panel Continue neuro checks Cardiac monitoring Consulted PT OT and ARCHITECTURE ANALYST Patient is on thiamine 100 mg daily Regarding any alcohol withdrawal symptoms will defer the management to the primary team. Patient was counseled on tobacco cessation and the cessation of polysubstance use. We'll defer the rest of the medical management to the primary team For DVT prophylaxis I started the patient on subcu heparin 5000 Hz every 12 hours Plan was discussed with the patient, her son via phone and her nurse Thank you for the consultation Time with Patient: Greater than 30
[2023-09-18] MEDS: CLOPIDOGREL 75 MG TAB PO SCH (12:16)
[2023-09-18] MEDS: TRIAMCINOLONE 0.1% CREAM 80 GM TUBE TOPICAL SCH ×2 (12:16→21:03)
[2023-09-18 13:24] LABS: Chol/HDL Ratio 2.96 Ratio; LDL Cholesterol,Calculated 62.2 mg/dL (0.0-131.0)
[2023-09-18] MEDS ORDERED: LORazepam 1 MG TAB PO PRN (18:51)
[2023-09-18] MEDS: ATORVASTATIN 40 MG TAB PO SCH (21:01)
[2023-09-18] MEDS: ARIPiprazole 15 MG TAB PO SCH (21:02)
[2023-09-18] MEDS: QUEtiapine 50 MG TAB PO SCH (21:02)
[2023-09-18] MEDS: PRAZOSIN 1 MG CAP PO SCH (22:25)
[2023-09-19] MEDS: LORATADINE 10 MG TAB PO SCH (06:17)
[2023-09-19] MEDS: atenoloL 25 MG TAB PO SCH (06:18)
[2023-09-19] MEDS: CLOTRIMAZOLE 1% CREAM 30 GM TUBE TOPICAL SCH (06:18)
[2023-09-19] MEDS: amLODIPine 10 MG TAB PO SCH (06:18)
[2023-09-19] MEDS: ARTIFICIAL TEARS-HYPROMELLOSE DROPS 15 ML BTL BOTH EYES SCH ×2 (06:18→16:37)
[2023-09-19] MEDS: HYDROCORTISONE 1% OINT 28.35 GM TUBE TOPICAL SCH ×2 (06:19→17:37)
[2023-09-19] MEDS: ACETAMINOPHEN TAB 325 MG TAB PO PRN (07:00)
[2023-09-19] MEDS: NICOTINE 21MG/24HR PATCH TRANSDERM SCH (09:24)
[2023-09-19] MEDS: CLOPIDOGREL 75 MG TAB PO SCH (09:24)
[2023-09-19] MEDS: HEPARIN SODIUM,PORCINE 5,000 UNIT/ML 1 ML VIAL SQ SCH ×2 (09:24→21:01)
[2023-09-19] MEDS: THIAMINE 100 MG TAB PO SCH (09:24)
[2023-09-19] MEDS: MULTIVITAMINS, THERA 1 EACH TAB PO SCH (09:24)
[2023-09-19] MEDS: ASPIRIN 325 MG TAB PO SCH (09:24)
[2023-09-19] MEDS: FAMOTIDINE 20 MG/2 ML VIAL IV SCH ×2 (09:24→21:01)
[2023-09-19] MEDS: TRIAMCINOLONE 0.1% CREAM 80 GM TUBE TOPICAL SCH ×2 (09:25→21:05)
[2023-09-19] MEDS: SYMBICORT 160-4.5 MCG INHALER INHALATION SCH ×2 (09:43→21:55)
--- NOTE | 2023-09-19 11:22 | P.PN ---
Subjective This is a pleasant 58 years old female with multiple medical problems She was recently admitted and check herself to [place] for alcohol withdr awal, she used to drink 1 pint and a half every day, she smokes about half pack per day and sometimes more and she was counseled to quit and she agrees for both and to the nicotine patch which she already has. She denies illicit drugs. Tuesday morning she started having feeling unwell associated with weakness in the left side and abnormal speech. She came to the hospital yesterday. With no improvement in her symptoms. She denies any other new complaints, no chest pain or dyspnea, no fever no ch lloyd in urine or bowel problem. Patient complains from headache about 7-8/10 in severity now 6-7, all over. Also she has tingling in her toes and left hand. She denies depression or suicidal ideation. Patient states she was taking aspirin for the last 4 years but she could not no the dose, she denies history of stroke but states she take it for heart reason as she thinks. On admission Vitas looks stable, blood pressure is slightly elevated 141/90. Labs show an unremarkable CBC, INR, BMP, liver enzymes and creatinine kinase Is 1.6 Troponin less than 0.012. Echocardiogram showing ejection fraction about 50-55% of the left ventricle EKG showing normal sinus rhythm at [address]-T changes Attention with no acute intracranial process CT of the head and neck showing no evidence of stenosis aneurysm or acute fracture. Currently patient placed on aspirin 325 mg She was admitted with neurological workup 09/19/2023 Patient left sided weakness and dysarthria partially improved, patient still has symptoms. No headache or dizziness. No chest pain. She remains on aspirin and Plavix. MRI of the brain is pending, possible will be done tomorrow because today still holiday. Patient remains on aspirin 325 mg and Plavix Objective - Vital Signs Vital signs: Vital Signs Temp 98.3 F 09/19/23 08:30 Pulse 67 09/19/23 08:30 Resp 16 09/19/23 08:30 BP 97/65 09/19/23 08:30 Pulse Ox 99 09/19/23 08:30 FiO2 Intake & Output 09/18/23 09/19/23 09/19/23 18:59 06:59 18:59 Intake Total 960 110 Balance 960 110 Intake: Oral 960 110 Other: Voiding Method Toilet Toilet # Voids 2 # Bowel Movements 0 - Exam -GENERAL: The patient is alert and oriented x3, not in any acute distress. Obese. HEENT: Pupils are round and equally reacting to light. EOMI. No scleral icterus. No conjunctival pallor. Normocephalic, atraumatic. No pharyngeal erythema. No thyromegaly. CARDIOVASCULAR: S1 and S2 present. No murmurs, rubs, or gallops. PULMONARY: Chest is clear to auscultation, no wheezing , no crackles. ABDOMEN: Soft, nontender, nondistended, normoactive bowel sounds. No palpable organomegaly. MUSCULOSKELETAL: No joint swelling or deformity. EXTREMITIES: No cyanosis, clubbing, or pedal edema. -NEUROLOGICAL: right facial division, slurred speech, weakness in the left upper and lower extremities. We clipped drip, weak flexion and extension of the left lower extremity. Rest of exam motor 5/5. Ventral signs are absent. SKIN: No rashes. no petechiae. - Labs CBC & Chem 7: 09/17/23 11:41 09/17/23 11:41 Assessment and Plan Assessment: Acute left hemiparesis with slurred speech and mild facial division suspicious for acute stroke Obesity with BMI of 29.1 Nicotine dependence Permissive hypertension History of asthma Hyperlipidemia History of bipolar and schizoaffective disorder Plan: Continue with aspirin , also Plavix added follow-up with MRI of the brain Neurology consult Labs and medication were reviewed.. Continue same treatment. Continue with symptomatic treatment. Resume home medication. Monitor labs and vitals. DVT and GI prophylaxis. Further recommendations as per clinical course of the patient DVT prophylaxis: Subcutaneous heparin GI Prophylaxis: Pepcid PT/OT: Pending Patient may benefit from PMR consult Prognosis is guarded
--- NOTE | 2023-09-19 12:31 | P.PN ---
Subjective Progress Note Date: 09/19/23 I am following-up with patient and she feels somewhat better today compared to yesterday in which she has improvement in left upper extremity but continues to have weakness in left lower extremity. Denies of any new neurological issues. Objective - Vital Signs Vital signs: Vital Signs Temp 98.3 F 09/19/23 08:30 Pulse 67 09/19/23 08:30 Resp 16 09/19/23 08:30 BP 97/65 09/19/23 08:30 Pulse Ox 99 09/19/23 08:30 FiO2 Intake & Output 09/18/23 09/19/23 09/19/23 18:59 06:59 18:59 Intake Total 960 110 Balance 960 110 Intake: Oral 960 110 Other: Voiding Method Toilet Toilet # Voids 2 # Bowel Movements 0 - Exam GENERAL: The patient is lying in bed and is not in acute distress. NEUROLOGICAL: Higher mental function: The patient is awake, alert, oriented to self, place and time. Patient is following commands. No aphasia and no neglect. Cranial nerves: The pupils are round, equal and reactive to light and accommodation. Visual payne are full to confrontation throughout. Extraocular movement is intact no nystagmus is noted. Facial sensation is decreased to touch on the left side to touch throughout. The facial strength is normal throughout. Hearing is normal bilaterally to hand rub. Tongue is midline and moved [id number] without any difficulty. No dysarthria. Shoulder shrug is normal bilaterally. Motor: Gait is deferred because of weakness. The strength is left upper extremity is 5- to 5/5. Left lower is 3-. Right is 5 over 5 throughout. Has mild pronator drift on the left upper extremity. Normal tone and bulk. Cerebellum: Normal finger to nose bilaterally. Sensation: Sensation is decrease to touch over the left lower extremity. Reflexes (right/left):2+ throughout. Plantars are mute bilaterally. Some of the workup during his hospital visit consisted of: CBC with differential and chemistry panels unremarkable TSH is 1.610. Lipid panel: TG 136, cholestrol 135, LDL [address] of the head is reported as no acute intracranial process. Nonspecific white matter changes, likely secondary due to chronic small vessel ischemic disease. I personally reviewed that a CT and agree with the report. CT angiography of the head and neck is reported as no evidence of dissection of the cervical internal carotid artery or vertebral artery or any evidence of significant stenosis at the carotid bifurcation. No evidence of intracranial high-grade stenosis or intracranial aneurysm. EKG is reported as sinus rhythm. Normal EKG. 2D echo was reported as left ventricle ejection fraction estimated of 50-55%. Mild concentric the illness. No obvious regional wall motion abnormality. - Labs CBC & Chem 7: 09/17/23 11:41 09/17/23 11:41 Assessment and Plan Assessment: This is a 58-year-old presents to our facility on 09/17/2023 from [place] because of left eyelid weakness, left facial droop, slurring the speech, numbness in the left lower extremity. She states she has uncontrolled hypertension. Denies any history of stroke. Acute to subacute ischemic stroke (with symptoms of left sided weakness (worsening weakness in left lower), left numbness, dysarthria). No IV tpa since outside the window and risk outweigh the benefit. Uncontrolled hypertension (states has underlying hx of HTN and can be in 170's systolic) Hypercholesteremia Polysubstance use (cocaine and alcohol use) Tobacco use Marijuana use Plan: Patient is on Aspirin 325mg daily and Plavix 75mg daily. At home states only takes ASA. Continue Lipitor 40 mg daily at bedtime for secondary stroke prophylaxis Pending at MRI the brain and will be likely completed tomorrow. 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 Continue neuro checks Cardiac monitoring Consulted PT OT and PLUMBING FOREMAN Patient is on thiamine 100 mg daily Regarding any alcohol withdrawal symptoms will defer the management to the pr imary team. Patient was counseled on tobacco cessation and the cessation of polysubstance use. We'll defer the rest of the medical management to the primary team For DVT prophylaxis subcu heparin 5000 units every 12 hours Plan was discussed with the patient and her nurse. Time with Patient: Less than 30
[2023-09-19] MEDS ORDERED: MELATONIN 5 MG TABLET PO PRN (20:00)
[2023-09-19] MEDS: IBUPROFEN 600 MG TAB PO PRN (21:02)
[2023-09-19] MEDS: ARIPiprazole 15 MG TAB PO SCH (21:03)
[2023-09-19] MEDS: ATORVASTATIN 40 MG TAB PO SCH (21:03)
[2023-09-19] MEDS: NYSTATIN 100,000 UNIT/GM POWD 15 GM TOPICAL SCH (21:04)
[2023-09-19] MEDS: ALBUTEROL NEBULIZED 2.5 MG/3 ML INHALATION PRN (21:55)
[2023-09-19] MEDS: PRAZOSIN 1 MG CAP PO SCH (21:57)
[2023-09-20] MEDS ORDERED: amLODIPine 5 MG TAB PO SCH (06:00)
[2023-09-20] MEDS: LORATADINE 10 MG TAB PO SCH (06:31)
[2023-09-20] MEDS: atenoloL 25 MG TAB PO SCH (06:31)
[2023-09-20] MEDS: HYDROCORTISONE 1% OINT 28.35 GM TUBE TOPICAL SCH (06:32)
[2023-09-20] MEDS: ARTIFICIAL TEARS-HYPROMELLOSE DROPS 15 ML BTL BOTH EYES SCH (06:32)
[2023-09-20] MEDS: CLOTRIMAZOLE 1% CREAM 30 GM TUBE TOPICAL SCH (06:32)
[2023-09-20] MEDS: ACETAMINOPHEN TAB 325 MG TAB PO PRN (06:34)
[2023-09-20] MEDS: SYMBICORT 160-4.5 MCG INHALER INHALATION SCH (08:15)
[2023-09-20] MEDS: ALBUTEROL NEBULIZED 2.5 MG/3 ML INHALATION PRN (08:17)
[2023-09-20] MEDS: IBUPROFEN 600 MG TAB PO PRN (08:35)
[2023-09-20] MEDS: HEPARIN SODIUM,PORCINE 5,000 UNIT/ML 1 ML VIAL SQ SCH (08:35)
[2023-09-20] MEDS: THIAMINE 100 MG TAB PO SCH (08:35)
[2023-09-20] MEDS: FAMOTIDINE 20 MG/2 ML VIAL IV SCH (08:35)
[2023-09-20] MEDS: MULTIVITAMINS, THERA 1 EACH TAB PO SCH (08:35)
[2023-09-20] MEDS: CLOPIDOGREL 75 MG TAB PO SCH (08:35)
[2023-09-20] MEDS: TRIAMCINOLONE 0.1% CREAM 80 GM TUBE TOPICAL SCH (08:36)
[2023-09-20] MEDS: NICOTINE 21MG/24HR PATCH TRANSDERM SCH (08:38)
[2023-09-20] MEDS: NYSTATIN 100,000 UNIT/GM POWD 15 GM TOPICAL SCH (08:40)
[2023-09-20 09:02] VITALS: RESP 17; TEMP 97.7
[2023-09-20] MEDS: ASPIRIN 325 MG TAB PO SCH (09:40)
[2023-09-20] MEDS ORDERED: LORazepam 1 MG TAB PO PRN (09:48)
--- NOTE | 2023-09-20 10:45 | MR ---
EXAMINATION TYPE: MR brain wo con DATE OF EXAM: 09/20/2023 10:37 AM CLINICAL INDICATION:Female, 58 years old with history of stroke, Neuro deficit, evaluate for stroke. COMPARISON: 09/17/2023. TECHNIQUE: Multi planar, multi sequence imaging was performed through the brain including: T1, T2, In version recovery, Diffusion weighted imaging, and gradient echo imaging. No gadolinium was given. FINDINGS: Mild cerebral atrophy with proportional dilation of ventricular system. Scattered foci of high T2 s ignal intensity are seen within the periventricular white matter. Midline structures show no abnormal ity. Diffusion-weighted imaging shows no evidence of restricted diffusion. The susceptibility weighte d images do not reveal any evidence for micro-hemorrhage. The bone marrow signal is within normal limits. Paranasal sinuses and mastoid air cells: No significant paranasal sinus disease. Visualized orbits: Bilaterally aphakia. IMPRESSION: 1. No evidence of intracranial mass or acute/subacute infarct. 2. Nonspecific white matter changes, likely secondary to small vessel ischemic disease.
--- NOTE | 2023-09-20 10:49 | P.CONS ---
History of Present Illness - Reason for Consult Consult date: 09/20/23 - Chief Complaint CVA - History of Present Illness Ms Hailey Puckett is a 58 y/o female who is currently staying at [facility] where she is undergoing substance abuse rehabilitation. She normally resides alone in a home, independent LAWN MOWER REPAIRER. She has 5 BEBE to get in, flight of stairs to t he basement. She used 4 ww in the home. Her son and his fiance have come to stay with her recently to help her out around the house. Patient presented to the hospital on 09/17/23 with slurred speech, left sided facial droop and left arm numbness/weakness that started 2 days prior to arrival. Patient is currently at [facility] where she is undergoing substance abuse rehab. On admission, her BP was slightly elevated, Echo showing EF 50-55% of the left ventricle. EKG with NSR. CT head and neck with no evidence of stenosis or aneurysm. She was started on ASA 325 mg, Neurology consulted. MRI br ain ordered. She was started on plavix. PM&R consulted for rehab recommendations. Patient was seen by OT, modified independent, ambulated 250 ft without AD. Review of Systems reviewed, negative unless stated above in subjective Past Medical History Past Medical History: Asthma, Hyperlipidemia, Hypertension History of Any Multi-Drug Resistant Organisms: None Reported Additional Past Surgical History / Comment(s): bilat cataract surgery Past Anesthesia/Blood Transfusion Reactions: No Reported Reaction Past Psychological History: Bipolar, Schizoaffective Disorder Smoking Status: Current every day smoker Past Alcohol Use History: Abuse Past Drug Use History: Cocaine, Marijuana Medications and Allergies Home Medications Medication Instructions Recorded Confirmed Type ARIPiprazole [Abilify] 15 mg PO HS 09/17/23 09/17/23 History Acetaminophen Tab [Tylenol] 650 mg PO QID 09/17/23 09/17/23 History Albuterol Nebulized [Ventolin 2.5 mg INHALATION RT-QID PRN 09/17/23 09/17/23 His tory Nebulized] Albuterol Sulfate [Albuterol 2 puff PO RT-Q4H PRN 09/17/23 09/17/23 History Sulfate Hfa] Artificial Tears-Hypromellose 1 drops BOTH EYES BID@0615,1630 09/17/23 09/17/23 History [Artificial Tear Drops] Benzonatate [Tessalon Perle] 200 mg PO TID PRN 09/17/23 09/17/23 History Calcium/Magnesium/Zinc/Vitamin D 1 tab PO TID 09/17/23 09/17/23 History Cetirizine HCl [Zyrtec] 10 mg PO DAILY@0600 09/17/23 09/17/23 History Chlorpheniramine Maleate 4 mg PO Q4H PRN 09/17/23 09/17/23 History [Chlor-Trimeton] Docusate [Colace] 100 mg PO BID PRN 09/17/23 09/17/23 History Eucalyptus Oil/Menthol/Camphor 1 applic TOPICAL DIRECTED PRN 09/17/23 09/17/23 History [Vicks Vaporub Ointment] Hydrocortisone Oint 1 applic TOPICAL BID@0600,1800 09/17/23 09/17/23 History [Hydrocortisone 2.5% Oint] Ketoconazole 2% Cream [Nizoral 2%] 1 applic TOPICAL DAILY@0609/17/23 09/17/23 History Loperamide HCl [Imodium A-D] 4 mg PO QID PRN 09/17/23 09/17/23 History Mag Hydrox/Aluminum Hyd/Simeth 30 ml PO Q4H PRN 09/17/23 09/17/23 History [Mylanta Maximum Strength Liq] Magnesium Hydroxide [Milk of 2,400 mg PO BID PRN 09/17/23 09/17/23 History Magnesia] Methyl Salicylate/Menthol [Icy Hot 1 applic TOPICAL BID PRN 09/17/23 09/17/23 History 10-30% Cream] Mometasone/Formoterol [Dulera 200 2 puff INHALATION BID@0600,1800 09/17/23 History Mcg-5 Mcg Inhaler] Multivitamins, Thera [Multivitamin 1 tab PO DAILY 09/17/23 09/17/23 History (formulary)] Prazosin [Minipress] 1 mg PO HS 09/17/23 09/17/23 History Thiamine [Vitamin B-1] 100 mg PO DAILY 09/17/23 09/17/23 History Triamcinolone 0.1% Cream [Kenalog 1 applicatio TOPICAL BID@0800,199909/17/23 09/17/23 History 0.1% Cream] amLODIPine [Norvasc] 10 mg PO DAILY@0600 09/17/23 09/17/23 History atenoloL [Tenormin] 25 mg PO DAILY@0600 09/17/23 09/17/23 History guaiFENesin SYRUP 100MG/5ML 200 mg PO Q4H PRN 09/17/23 09/17/23 History [Robitussin] ondansetron HCL [Zofran] 8 mg PO Q6H PRN 09/17/23 09/17/23 History Aspirin 325 mg PO DAILY #30 tab 09/20/23 Rx Atorvastatin [Lipitor] 20 mg PO DAILY@0600 #30 tab 09/20/23 Rx Clopidogrel [Plavix] 75 mg PO DAILY 21 Days #21 tab 09/20/23 Rx Nicotine 21Mg/24Hr Patch [Habitrol] 1 patch TRANSDERM DAILY #5 patch 09/20/23 Rx Nystatin 100,000 Unit/gm Powd 1 applic TOPICAL BID #1 tub 09/20/23 Rx [Mycostatin Powder] Allergies Allergy/AdvReac Type Severity Reaction Status Date / Time benztropine [From Cogentin] Allergy Unknown Verified 09/17/23 12:04 venlafaxine [From Effexor] Allergy Anaphylaxis Verified 09/17/23 12:04 Physical Exam Vitals: Vital Signs Temp Pulse Pulse Resp BP Pulse Ox 09/20/23 08:32 97.7 F 63 17 115/61 97 09/20/23 08:23 80 18 09/20/23 08:17 77 18 09/20/23 08:15 94 L 09/20/23 04:00 74 18 138/89 98 09/20/23 01:28 78 18 09/20/23 00:00 78 18 150/89 92 L 09/19/23 22:13 72 09/19/23 21:55 72 09/19/23 20:00 77 18 129/85 93 L 09/19/23 16:00 98.2 F 69 16 138/81 96 09/19/23 12:48 98.4 F 72 16 159/89 95 Intake and Output 09/19/23 09/20/23 09/20/23 22:59 06:59 14:59 Intake Total 825 120 Balance 825 120 Intake: Oral 825 120 Other: Voiding Method Toilet Toilet Toilet # Voids 3 2 # Bowel Movements 0 Weight 102.1 kg General: Well-developed, well-nourished, female, in no acute distress HEENT: NC/AT, external ears intact, hearing intact to conversational speech, neck supple Cardiovascular: B/L calves are supple, nontender, no cords, without peripheral edema Respiratory: Even and unlabored breathing on RA Abdomen: Soft, nontender, nondistended Genitourinary: no tinsley Skin: Skin intact where visible to head, neck, and bilateral upper and lower extremities Musculoskeletal: ROM WFL EXCEPT: MMT LUE: Sh Abd 4+/5, EE 4+/5, EF 4+/5, HG 4+/5 MMT RUE: Sh Abd 5/5, EE 5/5, EF 5/5, HG 5/5 MMT LLE: HF 3/5, KE 4/5, DF 4/5 MMT RLE: HF 4/5, KE 5/5, DF 5/5 Neurological: Alert and oriented x 3. CN II-XII: Grossly intact. Speech is slightly slurred, no facial droop, sensation decreased to LT in LUE and LLE Psychiatric: Mood calm, affect appropriate, cooperative Results CBC & Chem 7: 09/17/23 11:41 09/17/23 11:41 Assessment and Plan Assessment: # Left hemiparesis secondary to CVA -PT/OT -ASA/ statin/ plavix -MRI pending # Dysarthria # Obesity, BMI 36.3 # Bipolar d/o -abilify # Schizoaffective d/o # Polysubstance use # Comorbidities: HTN, HLD, asthma # Pain Management Tylenol prn, icy hot, Ibuprofen # DVT Proph SQ Heparin # Your medical dx and management Disposition: Patient is functioning well with OT, pending full PT evaluations but suspect patient is doing well considering she is able to ambulate independently. Recommending HHC with REVENUE ANALYST, OT, and PT for continued therapy. Patient seen and examined in coordination with Dr Bass. Thank you for consulting our services.
[2023-09-20 11:25] VITALS: BP 143/84; PULSE 85
--- NOTE | 2023-09-20 15:00 | P.PN ---
Subjective Progress Note Date: 09/20/23 I am following up with patient and she states, she continues to have weakness over the left side with numbness. MRI Brain is negative for acute or subacute ischemic stroke. Objective - Vital Signs Vital signs: Vital Signs Temp 97.7 F 09/20/23 08:32 Pulse 85 09/20/23 11:23 Resp 17 09/20/23 11:23 BP 143/84 09/20/23 11:23 Pulse Ox 99 09/20/23 11:23 FiO2 Intake & Output 09/19/23 09/20/23 09/20/23 18:59 06:59 18:59 Intake Total 335 600 480 Balance 335 600 480 Weight 102.1 kg Intake: Oral 335 600 480 Other: Voiding Method Toilet Toilet # Voids 3 2 # Bowel Movements 0 - Exam GENERAL: The patient is lying in bed and is not in acute distress. NEUROLOGICAL: Higher mental function: The patient is awake, alert, oriented to self, place and time. Patient is following commands. No aphasia and no neglect. Cranial nerves: The pupils are round, equal and reactive to light and accommodation. Visual payne are full to confrontation throughout. Extraocular movement is intact no nystagmus is noted. Facial sensation is decreased to touch on the left side to touch throughout. The facial strength is normal throughout. Hearing is normal bilaterally to hand rub. Tongue is midline and moved [id number] without any difficulty. No dysarthria. Shoulder shrug is normal bilaterally. Motor: Gait is deferred because of weakness. The strength is left upper extremity is 4+/5. Left lower is 3-. Right is 5 over 5 throughout. Has mild pronator drift on the left upper extremity. Normal tone and bulk. Cerebellum: Normal finger to nose bilaterally. Sensation: Sensation is decrease to touch over the left upper and lower extremity. Reflexes (right/left):2+ throughout. Plantars are mute bilaterally. Some of the workup during his hospital visit consisted of: CBC with differential and chemistry panels unremarkable TSH is 1.610. Lipid panel: TG 136, cholestrol 135, LDL [address] of the head is reported as no acute intracranial process. Nonspecific white matter changes, likely secondary due to chronic small vessel ischemic disease. I personally reviewed that a CT and agree with the report. CT angiography of the head and neck is reported as no evidence of dissection of the cervical internal carotid artery or vertebral artery or any evidence of significant stenosis at the carotid bifurcation. No evidence of intracranial high-grade stenosis or intracranial aneurysm. EKG is reported as sinus rhythm. Normal EKG. 2D echo was reported as left ventricle ejection fraction estimated of 50-55%. Mild concentric the illness. No obvious regional wall motion abnormality. MRI Brain is reported as no evidence of intracranial mass or acute/subacute infarct. Nonspecific white matter changes, likely secondary to small vessel ischemic disease. I personally review MRI Brain and agree with report. - Labs CBC & Chem 7: 09/17/23 11:41 09/17/23 11:41 Assessment and Plan Assessment: This is a 58-year-old presents to our facility on 09/17/2023 from [place] because of left eyelid weakness, left facial droop, slurring the speech, numbness in the left lower extremity. She states she has uncontrolled hy pertension. Denies any history of stroke. Acute to subacute left sided weakness with numbness and dysarthria. On MRI Brain is negative for acute to subacute ischemic stroke. I am not sure if patie nt has conversion disorder vs cannot rule out small stroke not picked up on MRI but feel possible conversion. Uncontrolled hypertension (states has underlying hx of HTN and can be in 170's systolic) Hypercholesteremia Polysubstance use (cocaine and alcohol use) Tobacco use Marijuana use Plan: Patient is on Aspirin 325mg daily and Plavix 75mg daily. At home states only takes ASA. Recommend to continue ASA and Plavix for 21 days and after 21 days stop Plavix but continue ASA indefidently. Continue Lipitor 40 mg daily at bedtime for secondary stroke prophylaxis Continue neuro checks Cardiac monitoring Consulted PT OT and TOWN ADMINISTRATOR Patient is on thiamine 100 mg daily Regarding any alcohol withdrawal symptoms will defer the management to the primary team. Patient was counseled on tobacco cessation and the cessation of polysubstance use. Recommend the patient to follow-up with neurologist and psychiatrist as outpatient within 2-3 weeks as outpatient. We'll defer the rest of the medical management to the primary team For DVT prophylaxis subcu heparin 5000 units every 12 hours Plan was discussed with the patient and her nurse. There is no further neurological work-up. Will sign off. Please reconsult if needed. Time with Patient: Less than 30
== END 2023-09-20 16:44 | disposition home health service (06) | DRG 45 ==
LOC: EC 11:08 → 3SCARD 13:08
PROVIDERS: ADMIT Internal Medicine; ATTEND Internal Medicine
DX: I63.9 Cerebral infarction, unspecified (principal); E66.9 Obesity, unspecified; Z68.36 Body mass index [BMI] 36.0-36.9, adult; R47.1 Dysarthria and anarthria; E78.00 Pure hypercholesterolemia, unspecified; R29.810 Facial weakness; R47.81 Slurred speech; F31.9 Bipolar disorder, unspecified; I10 Essential (primary) hypertension; R29.702 NIHSS score 2; F25.9 Schizoaffective disorder, unspecified; F17.210 Nicotine dependence, cigarettes, uncomplicated; G81.94 Hemiplegia, unspecified affecting left nondominant side; I08.3 Combined rheumatic disorders of mitral, aortic and tricuspid valves; Z79.02 Long term (current) use of antithrombotics/antiplatelets; Z79.51 Long term (current) use of inhaled steroids; Z79.82 Long term (current) use of aspirin; Z79.899 Other long term (current) drug therapy; Z98.42 Cataract extraction status, left eye; Z98.41 Cataract extraction status, right eye; Z71.6 Tobacco abuse counseling
CPT/HCPCS: 36415; 70450; 70496; 70498; 70551; 80053; 80061; 82550; 84443; 84484; 85025; 85610; 85730; 93005; 93306; 94640; 94760; 99291